=== PATIENT | male | born 1980 | race Caucasian/White ===

== ENCOUNTER 2017-05-15 22:46 | Inpatient (IN) | payer BC, OTHER ==
[2017-05-15] MEDS ORDERED: Lactated Ringers 1,000 ML IV SCH (23:45)
[2017-05-15] MEDS ORDERED: HYDROmorphone 0.5 MG/0.5 ML Syringe IVPUSH ONE (23:56)
[2017-05-15] MEDS ORDERED: Metoclopramide 10 MG/2 ML SDV IVPUSH ONE (23:56)
--- NOTE | 2017-05-16 00:06 | EDM.PDOC ---
ED HPI GENERAL MEDICAL PROBLEM - General Chief Complaint: Abdominal Pain Stated Complaint: ABD PAIN Time Seen by Provider: 05/15/17 23:57 Source of Information: Reports: Patient History Limitations: Reports: No Limitations - History of Present Illness INITIAL COMMENTS - FREE TEXT/NARRATIVE: 36 yo male here with progressive RLQ abdominal pain since about 3 pm today. Has vomited a couple times without relief. No change in bowels. No fever. No prior surgeries. Pain worse with movement or coughing. Onset: Today Onset Date: 05/15/17 Onset Time: 15:00 Duration: Hour(s): Location: Reports: Abdomen Quality: Reports: Ache Severity: Moderate Improves with: Reports: Rest Worsens with: Reports: Movement Context: Reports: Other (unknown) Associated Symptoms: Reports: Loss of Appetite, Nausea/Vomiting. Denies: Fever/ Chills Treatments [employer]: Reports: Other (see below) (none) Right Lower Abdomen Pain Score (Numeric/FACES): 9 - Related Data Allergies Allergy/AdvReac Type Severity Reaction Status Date / Time No Known Allergies Allergy Verified 05/15/17 23:31 Home Meds: Home Meds NK [No Known Home Meds] 05/13/15 [History] Past Medical History - Past Health History Medical/Surgical History: Denies Medical/Surgical History - Infectious Disease History Infectious Disease History: Reports: Chicken Pox Social & Family History - Tobacco Use Smoking Status *Q: Never Smoker Second Hand Smoke Exposure: No - Caffeine Use Caffeine Use: Reports: Coffee, Energy Drinks, Soda - Alcohol Use Days Per Week of Alcohol Use: 0 - Recreational Drug Use Recreational Drug Use: No ED ROS GENERAL - Review of Systems Review Of Systems: See Below Constitutional: Reports: Decreased Appetite HEENT: Reports: No Symptoms Respiratory: Reports: No Symptoms Cardiovascular: Reports: No Symptoms Endocrine: Reports: No Symptoms GI/Abdominal: Reports: Abdominal Pain, Anorexia, Decreased Appetite, Nausea, Vomiting. Denies: Black Stool, Bloody Stool, Constipation, Diarrhea, Distension , Hematemesis, Hematochezia, Melena, Stool Incontinence : Reports: No Symptoms Musculoskeletal: Reports: No Symptoms Skin: Reports: No Symptoms Neurological: Reports: No Symptoms Psychiatric: Reports: No Symptoms ED EXAM, GI/ABD - Physical Exam Exam: See Below Exam Limited By: No Limitations General Appearance: Alert, WD/WN, No Apparent Distress Eyes: Bilateral: Normal Appearance Ears: Normal External Exam, Normal Canal, Hearing Grossly Normal, Normal TMs Nose: Normal Inspection, Normal Mucosa, No Blood Throat/Mouth: Normal Inspection, Normal Lips, Normal Teeth, Normal Oropharynx, Normal Voice, No Airway Compromise Head: Atraumatic, Normocephalic Neck: Normal Inspection, Supple Respiratory/Chest: No Respiratory Distress, Lungs Clear, Normal Breath Sounds, No Accessory Muscle Use Cardiovascular: Regular Rate, Rhythm, No Edema GI/Abdominal Exam: Normal Bowel Sounds, Soft, No Distention, Tender ([place]) Back Exam: Normal Inspection. No: CVA Tenderness (R), CVA Tenderness (L) Extremities: Normal Inspection, Normal Range of Motion, Non-Tender Neurological: Alert, Oriented, CN II-XII Intact, Normal Cognition, No Motor/ Sensory Deficits Psychiatric: Normal Affect, Normal Mood Skin Exam: Warm, Dry, Intact, Normal Color, No Rash Lymphatic: No Adenopathy Course - Vital Signs Text/Narrative:: Dr. Griggs called @ 0132h Last Recorded V/S: Last Vital Signs Temp 38 C 05/15/17 23:36 Pulse 86 05/15/17 23:36 Resp 16 05/15/17 23:36 BP 130/73 05/15/17 23:36 Pulse Ox 94 L 05/15/17 23:36 - Orders/Labs/Meds Orders: Active Orders 24 hr Category Date Time Status Abdomen Pelvis w Cont [CT] Stat Exams 05/16/17 00:01 Taken UA W/MICROSCOPIC [URIN] Stat Lab 05/15/17 23:56 Uncollected Lactated Ringers [Ringers, Lactated] 1,000 ml Med 05/15/17 23:45 Active IV ASDIRECTED Medication Orders Lactated Ringer's (Ringers, Lactated) 1,000 mls @ 150 mls/hr IV ASDIRECTED DIPAK Last Admin: 05/16/17 00:18 Dose: 150 mls/hr Labs: Laboratory Tests 05/15/17 05/15/17 Range/Units 00:25 00:25 WBC 12.8 H (4.5-11.0) K/uL RBC 4.84 (4.30-5.90) M/uL Hgb 14.4 (12.0-15.0) g/dL Hct 41.0 (40.0-54.0) % MCV 85 (80-98) fL MCH 30 (27-31) pg MCHC 35 (32-36) % Plt Count 242 (150-400) K/uL Sodium 140 (140-148) mmol/L Potassium 4.2 (3.6-5.2) mmol/L Chloride 103 (100-108) mmol/L Carbon Dioxide 25 (21-32) mmol/L Anion Gap 12.2 (5.0-14.0) mmol/L BUN 16 (7-18) mg/dL Creatinine 1.1 (0.8-1.3) mg/dL Est Cr Clr Drug Dosing 94.94 mL/min Estimated GFR (MDRD) > 60 (>60) Glucose 120 H (74-106) mg/dL Calcium 9.1 (8.5-10.1) mg/dL Meds: Medications Generic Name Dose Route Start Last Admin Trade Name Freq PRN Reason Stop Dose Admin Lactated Ringer's 1,000 mls @ 150 mls/hr 05/15/17 23:45 05/16/17 00:18 Ringers, Lactated IV 150 mls/hr ASDIRECTED DIPAK Administration Discontinued Medications Generic Name Dose Route Start Last Admin Trade Name Freq PRN Reason Stop Dose Admin Hydromorphone HCl 0.5 mg 05/15/17 23:56 05/16/17 00:19 Dilaudid IVPUSH 05/15/17 23:57 0.5 mg ONETIME ONE Administration Sodium Chloride 85 mls @ 4 mls/sec 05/16/17 00:26 05/16/17 00:38 Normal Saline IV 05/16/17 00:27 4 mls/sec ASDIRECTED STA Administration Iopamidol 150 ml 05/16/17 00:25 05/16/17 00:38 Isovue-300 (61%) IV 05/16/17 00:26 150 ml . DIRECTED STA Administration Metoclopramide HCl 10 mg 05/15/17 23:56 05/16/17 00:20 Reglan IVPUSH 05/15/17 23:57 10 mg ONETIME ONE Administration - Radiology Interpretation CT Results Date: 05/16/17 CT Results Time: 01:35 Departure - Departure Time of Disposition: 01:45 Disposition: Admitted As Inpatient 65 Condition: Fair Clinical Impression: Acute appendicitis Qualifiers: Acute appendicitis type: with localized peritonitis Qualified Code(s): K35.3 - Acute appendicitis with localized peritonitis - Discharge Information Referrals: PCP,None [Primary Care Provider] - Forms: ED Department Discharge - My Orders Last 24 Hours: My Active Orders 05/15/17 23:45 Lactated Ringers [Ringers, Lactated] 1,000 ml IV ASDIRECTED 05/15/17 23:56 UA W/MICROSCOPIC [URIN] Stat 05/16/17 00:01 Abdomen Pelvis w Cont [CT] Stat - Assessment/Plan Last 24 Hours: My Active Orders 05/15/17 23:45 Lactated Ringers [Ringers, Lactated] 1,000 ml IV ASDIRECTED 05/15/17 23:56 UA W/MICROSCOPIC [URIN] Stat 05/16/17 00:01 Abdomen Pelvis w Cont [CT] Stat
[2017-05-16] MEDS ORDERED: Iopamidol 612 MG/ML 150 ML Bottle IV STA (00:25)
[2017-05-16] MEDS ORDERED: Piperacillin/Tazobactam 3.375 GM in Sodium Chloride 0.9% 50 ML IV SCH (02:00)
[2017-05-16] MEDS ORDERED: Ondansetron 4 MG/2 ML SDV IVPUSH PRN (03:13)
[2017-05-16] MEDS ORDERED: Scopolamine 1.5 MG Transdermal Patch TOP PRN (03:14)
[2017-05-16] MEDS ORDERED: Sodium Chloride 0.9% 1,000 ML IV SCH (03:15)
[2017-05-16] MEDS ORDERED: Morphine 2 MG/ML Syringe ONE (03:16)
[2017-05-16] MEDS ORDERED: Promethazine 25 MG/ML SDV IV PRN (03:17)
[2017-05-16] MEDS ORDERED: diphenhydrAMINE 50 MG/ML SDV IVPUSH PRN (03:18)
[2017-05-16] MEDS ORDERED: diphenhydrAMINE 25 MG Cap PO PRN (03:19)
[2017-05-16] MEDS ORDERED: Morphine 4 MG/ML Syringe IVPUSH PRN (03:22)
[2017-05-16] MEDS ORDERED: fentaNYL 100 MCG/2 ML SDV IVPUSH PRN (03:23)
[2017-05-16] MEDS ORDERED: Nicotine 14 MG/24 Hr Patch TRDERM PRN (03:24)
[2017-05-16] MEDS ORDERED: Bupivacaine 0.5%/EPINEPHrine 1:200,000 50 ML MDV ONE (06:50)
[2017-05-16] MEDS ORDERED: Succinylcholine 200 MG/10 ML MDV ONE (07:42)
[2017-05-16] MEDS ORDERED: Glycopyrrolate 0.2 MG/ML 5 ML MDV ONE (07:42)
[2017-05-16] MEDS ORDERED: Rocuronium 50 MG/5 ML Vial ONE (07:42)
[2017-05-16] MEDS ORDERED: Neostigmine Methylsulfate 1 MG/ML 5 ML Syringe ONE (07:42)
[2017-05-16] MEDS ORDERED: Propofol 200 MG/20 ML SDV ONE (07:42)
[2017-05-16] MEDS ORDERED: Ondansetron 4 MG/2 ML SDV ONE (07:42)
[2017-05-16] MEDS ORDERED: Dexamethasone 4 MG/ML SDV ONE (07:42)
[2017-05-16] MEDS ORDERED: Piperacillin/Tazobactam/Dext 3.375 GM in Premix Bag 1 BAG IV ONE (08:00)
[2017-05-16] MEDS ORDERED: Ketorolac 60 MG/2 ML SDV ONE (08:21)
[2017-05-16] MEDS ORDERED: Lactated Ringers 1,000 ML ONE (08:23)
--- NOTE | 2017-05-16 09:01 | CONS ---
DATE OF SERVICE: 05/16/2017 REFERRING PHYSICIAN: CONSULTING PHYSICIAN: Jim Griggs MD REASON FOR CONSULTATION: Abdominal pain. HISTORY OF PRESENT ILLNESS: A pleasant 36-year-old male who has had an approximately 24- hour onset of right lower quadrant abdominal pain. This is associated with mild nausea. No vomiting, shortness of breath, or chest pain. This is made better and worse by position. PAST SURGICAL HISTORY: None. PAST MEDICAL HISTORY: None. SOCIAL HISTORY: Does not smoke. FAMILY HISTORY: Noncontributory. REVIEW OF SYSTEMS: GENERAL: The patient is appropriate for his condition. HEENT: No symptoms. CARDIOVASCULAR: No history of myocardial infarction. RESPIRATORY: No history of shortness of breath or asthma. GASTROINTESTINAL: No significant changes. GENITOURINARY: No dysuria. NEUROLOGICAL: No symptoms. PSYCH: No symptoms. The remainder of review of systems was reviewed and is negative. PHYSICAL EXAMINATION: VITAL SIGNS: Show febrile disease. GENERAL: The patient is resting comfortably. HEENT: Pupils are equal. NECK: Supple. LUNGS: Clear. CARDIOVASCULAR: Regular rhythm and rate. ABDOMEN: Pain with palpation of the right lower quadrant. EXTREMITIES: Full range of motion. Strength 5/5. SKIN: Grossly intact. NEUROLOGICAL: Oriented x3. PSYCH: No gross depression. IMAGING: I did review the CT scan, which suggests appendicitis. ASSESSMENT: Appendicitis. PLAN: The patient will be taken to the operating room for laparoscopic appendectomy. We discussed risks, benefits, alternatives, and limitations including but not limited to infection, bleeding, perforation, injury to bowel/bladder, and other risks not listed here. We also discussed the possibility and the probability of open appendectomy. The patient understands these risks and wishes to proceed. iJm Griggs MD /[id number]
--- NOTE | 2017-05-16 09:31 | OR ---
DATE OF PROCEDURE: 05/16/2017 PROCEDURE: Laparoscopic appendectomy. FINDINGS: Appendicitis, nonruptured. COMPLICATIONS: None. MANAGEMENT NURSE RN: None. ANESTHESIA: General/local. INDICATIONS: A 36-year-old male with diagnosed right lower quadrant abdominal pain and appendicitis. RISKS: Risks, benefits, alternatives, limitations including but not limited to infection, bleeding, perforation of abdominal structures such as bowel, bladder, and blood vessels were explained to the patient. We also discussed the seroma, abscess formation, the role of drain, role of antibiotics, and other risks not listed here. PROCEDURE IN DETAIL: The patient was placed in supine position. A curvilinear supraumbilical incision was made. A Veress needle was used to enter the abdomen without abnormality and drop test was performed without abnormality. The Optiview trocar was used to follow. No evidence of enterotomy or injury was noted during entry. Two additional 5 mm ports were entered under direct visualization. Diagnostic laparoscopy showed a nonperforated appendicitis. This was elevated and subsequently transected with a harrell load stapler. This was delivered through the umbilical port without difficulty. The appendiceal stump was inspected for bleeding, which there was very minimal. This was then thoroughly irrigated with 1 L of normal saline. The patient's position was moved in multiple positions to facilitate removal of this fluid. No other abnormalities noted. The air was removed. The wounds were closed with 3-0 Vicryl and 4-0 Vicryl after thorough irrigation. The patient tolerated the procedure well. Jim Griggs MD /[id number]
[2017-05-16] MEDS ORDERED: Acetaminophen/HYDROcodone 325-5 MG Tab PO PRN (10:50)
[2017-05-16] MEDS: Ibuprofen 600 MG Tab PO SCH ×2 (11:14→18:28)
[2017-05-16] MEDS: Piperacillin/Tazobactam/Dext 3.375 GM in Premix Bag 1 BAG IV SCH ×2 (15:39→23:17)
[2017-05-17 02:20] VITALS: BP 95/59
[2017-05-17] MEDS: Ibuprofen 600 MG Tab PO SCH ×2 (02:20→10:26)
[2017-05-17] MEDS: Piperacillin/Tazobactam/Dext 3.375 GM in Premix Bag 1 BAG IV SCH (07:34)
--- NOTE | 2017-06-14 10:06 | DISCH ---
DISCHARGE DIAGNOSIS: Status post laparoscopic appendectomy. SUMMARY OF HOSPITAL COURSE: A pleasant 36-year-old male who underwent uneventful laparoscopic appendectomy. Prior to discharge, his pain is well controlled. He had no nausea, vomiting, shortness of breath, or chest pain. He is tolerating p.o. diet without any evidence of complication. FOLLOWUP: Follow up with Surgery in 7-14 days. DISCHARGE MEDICATIONS: Please see MAR, but include [place] for pain. ACTIVITY: No lifting greater than 30 pounds for 30 days.
== END 2017-05-17 10:41 | disposition home or self-care (01) | DRG 343 ==
LOC: JP.ED 22:46 → JP.MS 05-16 02:35
PROVIDERS: ADMIT Surgery; ATTEND Surgery
PROC: 0DTJ4ZZ Resection of Appendix, Percutaneous Endoscopic Approach (ICD-10-PCS; principal; 2017-05-16)
DX: K35.80 Unspecified acute appendicitis (principal)
CPT/HCPCS: 36415; 74177; 80048; 85027; 88304; 96374; 96375; 99285-25; A9270-GY; J0330; J1100; J1170; J1885; J2270; J2405; J2543; J2704; J2710; J2765; J3010; J7030; J7050; J7120

== ENCOUNTER 2017-11-16 07:52 | Emergency (ER) | payer OTHER ==
[2017-11-16 08:10] VITALS: BP 124/94
--- NOTE | 2017-11-16 08:26 | EDM.PDOC ---
ED HPI GENERAL MEDICAL PROBLEM - General Chief Complaint: Skin Complaint Stated Complaint: POISON MRAIA C ON HANDS? Time Seen by Provider: 11/16/17 08:10 Source of Information: Reports: Patient History Limitations: Reports: No Limitations - History of Present Illness INITIAL COMMENTS - FREE TEXT/NARRATIVE: 37-year-old male who believes he was exposed to poison maria c on his hands from his bow. Over the last few days he's had redness, pruritus and itching on both hands and over the past 24 hours and started to swell. He has taken Benadryl without relief. He has a long history of sensitive reactions to poison maria c. Onset: Gradual (Over the past several days) Location: Reports: Upper Extremity, Left, Upper Extremity, Right Severity: Moderate Associated Symptoms: Reports: No Other Symptoms - Related Data Allergies Allergy/AdvReac Type Severity Reaction Status Date / Time No Known Allergies Allergy Verified 11/16/17 08:12 Home Meds: Home Meds NK [No Known Home Meds] 05/13/15 [History] Past Medical History - Past Health History Medical/Surgical History: Denies Medical/Surgical History - Infectious Disease History Infectious Disease History: Reports: Chicken Pox - Past Surgical History GI Surgical History: Reports: Appendectomy Social & Family History - Tobacco Use Smoking Status *Q: Never Smoker Second Hand Smoke Exposure: No - Caffeine Use Caffeine Use: Reports: Coffee - Alcohol Use Days Per Week of Alcohol Use: 0 - Recreational Drug Use Recreational Drug Use: No ED ROS GENERAL - Review of Systems Review Of Systems: See Below Constitutional: Denies: Fever, Chills HEENT: Denies: Throat Swelling Respiratory: Denies: Shortness of Breath Cardiovascular: Denies: Chest Pain GI/Abdominal: Denies: Nausea, Vomiting Skin: Reports: Pruritis, Erythema, Other (Symptoms are on his hands only) ED EXAM, SKIN/RASH Exam: See Below Exam Limited By: No Limitations General Appearance: Alert, No Apparent Distress Respiratory/Chest: No Respiratory Distress Extremities: Other (Exam is otherwise limited to the upper extremities. The patient does have some diffuse erythema over the palms of the hands and intermittent the interdigital spaces of the fingers. No vesicular development.) Course - Vital Signs Last Recorded V/S: Last Vital Signs Temp 95.9 F 11/16/17 08:11 Pulse 68 11/16/17 08:11 Resp 16 11/16/17 08:11 BP 124/94 H 11/16/17 08:11 Pulse Ox 99 11/16/17 08:11 - Re-Assessments/Exams Free Text/Narrative Re-Assessment/Exam: 11/16/17 08:24 It appears he's having some type of contact dermatitis. He'll be placed on 60 mg of prednisone daily for 5 consecutive days. He can continue with Benadryl as well, and can return anytime if worsening. Departure - Departure Time of Disposition: 08:38 Disposition: Home, Self-Care 01 Condition: Good Clinical Impression: Contact dermatitis Qualifiers: Contact dermatitis type: allergic Contact dermatitis trigger: non-food plants Qualified Code(s): L23.7 - Allergic contact dermatitis due to plants, except food - Discharge Information Instructions: Poison Maria C Dermatitis, [id number] Referrals: PCP,None [Primary Care Provider] - Forms: ED Department Discharge Care Plan Goals: Take 6 pills of prednisone with your first meal for 5 consecutive days. Continue with Benadryl if you feel it helps. Return anytime if worsening despite treatment, or consider rechecking in 4-5 days if not improving satisfactorily. Avoid further exposure to poison maria c.
== END 2017-11-16 08:38 | disposition home or self-care (01) ==
LOC: JP.ED 07:52
DX: L23.7 Allergic contact dermatitis due to plants, except food (principal)
CPT/HCPCS: 99283